=== PATIENT | female | born 1965 | race Caucasian/White ===

== ENCOUNTER → 2020-11-10 | Outpatient (CLI) | payer OTHER ==
--- NOTE | 2020-11-10 14:26 | RAD ---
EXAM: Left knee, 3 views. HISTORY: Pain. COMPARISON: None. FINDINGS: 3 views of the left knee are obtained. There is no fracture, dislocation or subluxation. Th ere is a small. IMPRESSION: Small joint effusion. No acute osseous finding. Electronically signed by: Nichelle Centeno MD (11/10/2020 2:23 PM) [id number]
--- NOTE | 2020-11-10 14:51 | RAD ---
EXAM: Left lower extremity venous Doppler. HISTORY: Left lower extremity pain/swelling. COMPARISON: None. FINDINGS: Grayscale and Doppler analysis of the left lower extremity deep venous system was performed with graded compression and augmentation. The common femoral, greater saphenous, superficial femoral , popliteal and calf veins were assessed. There is no evidence of deep venous thrombosis. A popliteal cyst measures 5.8 x 4.0 x 2.6 cm. IMPRESSION: 1. No evidence of deep venous thrombosis. 2. Moderate left popliteal cyst. Electronically signed by: Yazmin Spain MD (11/10/2020 2:49 PM) [facility]
== END ==
LOC: RAD 14:05
PROVIDERS: ATTEND Nurse Practitioner Family
DX: M25.462 Effusion, left knee (principal); M71.22 Synovial cyst of popliteal space [Baker], left knee
CPT/HCPCS: 73562; 93971